=== PATIENT | female | born 1970 | race Caucasian/White ===

== ENCOUNTER → 2021-08-14 11:47 | Outpatient (CLI) | payer OTHER, SELFPAY ==
--- NOTE | ~2021-08-14 | US_ITS ---
EXAMINATION: US transvaginal EXAM DATE: 08/14/2021 12:43 INDICATION: Excessive and frequent menstruation. TECHNIQUE: Pelvic transvaginal sonogram was performed. There are multiple grayscale and Doppler imag es available for interpretation. Comparison is made to prior examination from 04/30/2017. FINDINGS: Uterus measures 8.7 x 3.6 x 4.5 cm, with possible anterior myometrial fibroid at 2.5 cm. E ndometrial stripe measures 8 mm, within normal limits. There is no free pelvic fluid. Right adnexa: The ovary measures 2.2 x 1.3 x 2.8 cm and is morphologically normal. Ovarian vascular f low confirmed. Left adnexa: The ovary measures 2.0 x 1.3 x 1.7 cm and is morphologically normal. Ovarian vascular fl ow confirmed. IMPRESSION: Possible anterior myometrial fibroid. Reviewed, dictated and finalized at location B.
--- NOTE | ~2021-08-14 | MM_ITS ---
EXAMINATION: MM screening mady BI w bethany HISTORY: Screening TECHNIQUE: Craniocaudal and mediolateral oblique 3-D tomosynthesis images were obtained and synthetic 2-D images were generated. CAD analysis was submitted and interpreted. COMPARISON: Comparison to multiple prior studies sequentially, with oldest reviewed study dated 11/22. BREAST PARENCHYMAL COMPOSITION: There are scattered areas of fibroglandular density. FINDINGS: There is no evidence of suspicious mass, calcification, or architectural distortion to sugg est malignancy in either breast. There has been no suspicious interval change. IMPRESSION: 1. No mammographic evidence of malignancy. 2. Recommend routine screening mammography in one year. BI-RADS Category 1: Negative Reviewed, dictated and finalized at location A.
== END ==
PROVIDERS: Visit Provider Nurse Practitioner
DX: Z12.31 Encounter for screening mammogram for malignant neoplasm of breast (principal); N92.0 Excessive and frequent menstruation with regular cycle
CPT/HCPCS: 76830; 77063; 77067

== ENCOUNTER 2021-11-09 02:25 | Day surgery (SDC) | payer OTHER, SELFPAY ==
--- NOTE | 2021-10-22 10:06 | SUR.PREOP ---
Addendum entered by Grecia Hutchison RN 11/05/21 12:27: PT TO ARRIVE AT 1230 ON 11/09/21 FOR SURGERY AT 1430. NO CLEAR LIQUIDS AFTER 1130. Original Note: Report to the Outpatient Waiting Room, entrance under the green pavilion located off [facility], at time 1145 on date 10/26/21. OR Time: 1345. - You and your visitor will be asked a series of questions to screen for COVID 19 for your protection. - Only one visitor is allowed at this time. - The patient visitor is requested to leave or wait in car when not with patient. - A mask is required within the hospital. Patients may have clear liquids (water, carbonated beverages, clear teas, apple juice) until 3 hours prior to surgery with a maximum of 20 ounces. - NO CLEAR LIQUIDS AFTER 1045 - No food from midnight until time of surgery - Infants may have breast milk until 4 hours before surgery, infant formula 6 hours prior to surgery. - Children will be allowed to drink immediately following surgery. If applicable, please bring a bottle or sippy cup to assist with drinking. Juice, water, soda, and popsicles are readily available. For infants on formula, please bring formula the day of surgery. Pacifiers are allowed. Please no make-up, nail libyan, hairspray, perfume, deodorant, or body powder the day of surgery. No jewelry (including any body piercings) or valuables the day of surgery, leave them at home. Please take a shower or bath the night before, or the morning of, surgery with an antibacterial soap. Wear comfortable, loose fitting clothing. Children are encouraged to wear pajamas. - Jewelry must be removed prior to entering the operating room. Rings and piercings that are not removed may be cut off. - The hospital will not accept responsibility for valuables. - Please leave all valuables, including medications, at home the day of surgery. If you are going home after surgery, a licensed after school driver must drive you home. - NO public transportation without another adult. - We recommend that an adult stay with you for 24 hours following discharge. - We also recommend that you do not drive, make important decision, drink alcoholic beverages, or take any drugs that were not prescribed by your health care provider for at least 24 hours after your discharge time. For Pediatric surgeries, we recommend two adults accompany the child home (only one inside the building at this time). Follow any additional instructions given to you from your surgeon. If you or anyone in your household have experienced Covid symptoms in the past week, please notify your surgeon or the nurse liaison at the phone number below for possible testing. Telephone instructions given to DELILAH RITTER and asked if any additional questions and then verbalized understanding. Patient advised to call surgeon office or pre surgery nurse liaison [phone] if any additional questions.
[2021-10-22 10:13] VITALS: BMI 28.3
--- NOTE | 2021-10-26 07:51 | WPDHPUPDATE1 ---
History and Physical Update Update Date/Time: 10/26/21 07:51 History and Physical has been reviewed, including an updated exam of the patient. There are NO changes in the patient's condition. Risks, benefits, and alternatives have been discussed and questions answered. Patient agrees to proceed with procedure.
--- NOTE | 2021-10-26 07:52 | PM.HPGS ---
History of Present Illness History of Present Illness Consent: Risks, benefits, and alternatives have been discussed and questions answered. Patient agrees to proceed with procedure. Chief complaint: Menorrhagia Narrative: Sarai Alejo is a 51 year old female with long and heavy cycles. Patient was previously scheduled for 10/26 and had to cancel due to starting her cycle in bleeding heavy the day of surgery. It was recommended to proceed with D&C hysteroscopy due to possible fibroid on ultrasound. Risks of infection, bleeding, perforation, and fluid imbalance were reviewed. Possible pathology was discussed. Patient voices understanding and agrees to proceed. Review of Systems Constitutional: Constitutional: Reports night sweats (And hot flashes) PMFSH Past Medical History Medical History (Updated 11/09/21 @ 09:52 by Jeanna Dyer MD) Anxiety BMI 28.0-28.9,adult (normal spontaneous vaginal delivery) x2 Vacuum-assisted vaginal delivery x1 Surgical History Surgical History (Updated 11/09/21 @ 09:52 by Jeanna Dyer MD) History of bilateral breast reduction surgery History of hysteroscopy 2016 Family History Family History Father Hypertension Parkinson's disease Mother Family history of malignant neoplasm Grandparent Family history of coronary artery disease Sibling No problems noted. Social History Social History Smoking packs per day: 1 Smoking cigarettes per day: 20.0 Years smoked: 18 Smoking pack-years: 18.00 Smoking status: Former smoker Tobacco type: cigarettes Second hand tobacco smoke exposure: No Smoking end date: 05/02/05 Alcohol intake: current Drinks per week: 4 Substance use: never Substance use type: does not use Living arrangements: with family Additional occupation/education comments: teacher-[employer] Gender identity (if verbalized by the patient): Female Spiritual care concerns: No Meds Home Medications and Allergies Home Medications Medication Instructions Recorded Confirmed Type hydrocortisone-acetic acid 1 %-2 % 3 drp otic (ear) TID #10 mL 10/08/21 11/05/21 Rx ear drops citalopram 40 mg tablet 40 mg PO HS 10/22/21 11/05/21 History ergocalciferol (vitamin D2) 1,250 1 cap PO 2XW 10/22/21 11/05/21 History mcg (50,000 unit) capsule scopolamine base 1 mg over 3 days 1 patch transdermal Q72H PRN 11/05/21 11/05/21 Rx transdermal patch motion sickness #4 ea Allergies Allergy/AdvReac Type Severity Reaction Status Date / Time No Known Allergies Allergy Unknown Verified 11/05/21 12:27 Exam Const: General: healthy appearing and alert Orientation/consciousness: patient oriented x3 Resp: Effort & Inspection: normal respiratory effort Auscultation: clear to auscultation bilaterally Cardio: Rate: regular rate Rhythm: regular rhythm GI: GI Palp: Yes Soft to palpation, No Tenderness to palpation present (GI) and No Palpable mass present : External Female Exam: normal external appearance Speculum Exam - Vagina: normal appearance of the vagina and normal vaginal discharge Speculum Exam - Cervix: normal appearance of the cervix Bimanual exam- vagina & uterus: uterine size normal and consistency normal Bimanual Exam- Adnexa, other: normal adnexae and No adnexal tenderness Neuro: General: patient oriented x3 Assessment and Plan Assessment and plan (1) Menorrhagia: Code(s): N92.0 - Excessive and frequent menstruation with regular cycle Status: Acute Assessment and Plan: Plan to proceed with D&C hysteroscopy
--- NOTE | 2021-11-05 12:27 | PC.NURSE ---
Pt states no changes in medications or health history since initial interview. Pre-op instructions reviewed with pt. Pt denies further questions at this time.
--- NOTE | 2021-11-09 09:48 | WPDHPUPDATE1 ---
History and Physical Update Update Date/Time: 11/09/21 09:48 History and Physical has been reviewed, including an updated exam of the patient. There are NO changes in the patient's condition. Risks, benefits, and alternatives have been discussed and questions answered. Patient agrees to proceed with procedure.
--- NOTE | 2021-11-09 12:30 | P.PNAN_ITS ---
Anes - Initial Pre Proc Eval Procedure: Operation Date: 11/09/21 14:30 Proposed Procedures p Hysteroscopy with Dilation and Curettage - Jeanna Dyer MD Date/Time: 11/09/21 12:30 Surgeon: Jeanna Dyer MD Pre Op Diagnosis: Menorrhagia Patient Data Age: 51 Gender: F Height: 1.57 m Weight: 70.4 kg Allergies Allergy/AdvReac Type Severity Reaction Status Date / Time No Known Allergies Allergy Unknown Verified 11/05/21 12:27 Home Medications Medication Instructions Recorded Confirmed Type hydrocortisone-acetic acid 1 %-2 % 3 drp otic (ear) TID #10 mL 10/08/21 11/05/21 Rx ear drops citalopram 40 mg tablet 40 mg PO HS 10/22/21 11/05/21 History ergocalciferol (vitamin D2) 1,250 1 cap PO 2XW 10/22/21 11/05/21 History mcg (50,000 unit) capsule scopolamine base 1 mg over 3 days 1 patch transdermal Q72H PRN 11/05/21 11/05/21 Rx transdermal patch motion sickness #4 ea Patient hx anesthesia problems: none Family hx anesthesia problems: none Results Review: All pre-operative results and documents have been reviewed as part of the pre- operative evaluation. [facility] Past Medical History Medical History (Updated 11/09/21 @ 12:31 by Reyes Delgado MD) Anxiety BMI 28.0-28.9,adult Menorrhagia (normal spontaneous vaginal delivery) x2 Vacuum-assisted vaginal delivery x1 Surgical History Surgical History (Updated 11/09/21 @ 09:52 by Jeanna Dyer MD) History of bilateral breast reduction surgery History of hysteroscopy 2017 Family History Family History Father Hypertension Parkinson's disease Mother Family history of malignant neoplasm Grandparent Family history of coronary artery disease Sibling No problems noted. 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 Informed Consent: The patient's anesthetic plan and its attendant risks and benefits were discussed with the patient/family/POA. Questions were solicited and answers provided to the satisfaction of the patient/family/POA.
[2021-11-09 13:00] VITALS: BP 129/69; PULSE 68; RESP 16; TEMP 36.5; O2SAT 100
[2021-11-09] MEDS: LACTATED RINGERS 1,000 ML 30 ML IV CONT (13:00)
[2021-11-09] MEDS: ACETAMINOPHEN 500 MG TABLET 1000 MG PO (13:12)
[2021-11-09] MEDS: KETOROLAC 30 MG/ML VIAL (*BKC) IV PUSH (14:20)
--- NOTE | 2021-11-09 14:24 | P.OP_ITS ---
Procedure Note - Detailed Date of Procedure 11/09/21 Pre-op Diagnosis Menorrhagia Post-op Diagnosis Same Procedure Performed D&C hysteroscopy Surgeon Jeanna Dyer MD Anesthesia MAC and Local Findings Uterus sounds to 8cm and appears thickened anteriorly Description of Procedure The patient was taken to the operating room and placed under anesthesia in the dorsal lithotomy position. She was prepped and draped in the usual sterile fashion. [place] speculum was placed in the vagina and the cervix grasped on the anterior lip with a tenaculum. Cervix is injected in each quadrant with 1% lidocaine. The uterus is sounded to 8cm. The cervix is serially dilated with Hegar to an 8. Diagnostic hysteroscope was placed with the above-stated findings. The hysteroscope was removed and the medium sharp curette used to curette the endometrium until a good uterine cry was noted in all areas. Particular attention was paid to the anterior surface near the fundus. All instruments are removed. Sponge, needle, and instrument counts are correct per the OR staff. Patient is awakened from anesthesia and taken to recovery in stable condition. Estimated Blood Loss 5 Drains No Packing No Pathology Yes (Endometrial curettings) Complications No immediate complications Condition Stable Disposition PACU
[2021-11-09 14:28] VITALS: BP 98/58; PULSE 60; RESP 16; O2SAT 96
[2021-11-09 14:55] VITALS: BP 120/73; PULSE 61
[2021-11-09 15:25] VITALS: BP 110/59; PULSE 60
== END 2021-11-09 15:42 | disposition home or self-care (01) ==
PROVIDERS: PCP Family Medicine; Visit Provider Obstetrics & Gynecology Gynecology
PROC: 0U5B8ZZ Destruction of Endometrium, Via Natural or Artificial Opening Endoscopic (ICD-10-PCS; CPT 58563; principal; 2021-11-09 14:30)
DX: N92.0 Excessive and frequent menstruation with regular cycle (principal); F41.9 Anxiety disorder, unspecified; Z87.891 Personal history of nicotine dependence
CPT/HCPCS: 58558; 88305; A9270; J1100; J1885; J2250; J2405; J2704; J3010; J7120

== ENCOUNTER 2024-01-20 08:25 | Emergency (ER) | payer OTHER, SELFPAY ==
[2024-01-20] VITALS (25 sets, daily range): BP systolic 107–125; BP diastolic 63–82; PULSE 58–77; RESP 12–20; TEMP 36.6; O2SAT 97–100
[2024-01-20 09:17] LABS: Basophils Percent Auto 0.7 % (0.2-1.2); Eosinophils Percent Auto 0.5 % (0-4.4); Hematocrit 43.6 % (37.0-47.0); Hemoglobin 14.5 g/dL (12.0-15.0); Immature Granulocyte Absolute 0.01 K/mm3 (0.00-0.031); Immature Granulocyte Percent A 0.2 % (0-0.5); Lymphocytes Absolute Auto 1.81 K/mm3 (0.9-3.2); Lymphocytes Percent Auto 29.5 % (18.3-44.2); Mean Corpuscular HGB Conc 33.3 g/dl (32-36); Mean Corpuscular Hemoglobin 31.1 pg (26-34); Mean Corpuscular Volume 93.6 fl (80-100); Mean Platelet Volume 8.7 fl (7.4-10.4); Monocytes Absolute Auto 0.6 K/mm3 (0.1-0.6); Monocytes Percent Auto 10.3 % (2.6-8.5); Neutrophils Absolute Auto 3.6 K/mm3 (1.3-6.7); Neutrophils Percent Auto 58.8 % (45.5-73.1); Platelet Count Result 265 k/mm3 (150-375); Red Blood Count 4.66 M/mm3 (4.2-5.4); Red Cell Distribution Width 13.3 % (11.5-14.5); White Blood Count 6.1 K/mm3 (4.5-10.0)
[2024-01-20] MEDS: diphenhydrAMINE HCl INJ 50 MG/ML VIAL IV PUSH (09:18)
[2024-01-20] MEDS: methylPREDNISolone SOD SUCC 125 MG VIAL IV PUSH (09:21)
[2024-01-20] MEDS: FAMOTIDINE 20 MG/2 ML VIAL IV PUSH (09:25)
[2024-01-20] MEDS: LACTATED RINGERS 1,000 ML 999 ML IV CONT (09:25)
[2024-01-20 09:36] LABS: Anion Gap 6 mmol/L (4-12); Blood Urea Nitrogen 9 mg/dL (7-17); Carbon Dioxide 30 mmol/L (22-30); Chloride 102 mmol/L (98-107); Estimated CRCL calculation 85 ml/min; Estimated Glomerular Filt Rate > 60; Glucose 103 mg/dL (65-110); Potassium 3.8 mmol/L (3.4-5.0); Sodium 138 mmol/L (137-145)
--- NOTE | 2024-01-20 09:57 | ED.ALLEREA ---
HPI - Allergic Reaction General Chief complaint: Allergic Reaction Stated complaint: lip swelling Time Seen by Provider: 01/20/24 08:50 History of Present Illness HPI narrative: 53-year-old otherwise healthy female presented to the emergency depart with lower lip and lower bilateral facial swelling. She states she woke up at midnight yesterday noticed a tingling sensation around her lips both upper lower and knows that which looked in the mirror she had significant swelling her anterior left upper lip and lower lip. She started noticing that she had some swelling in her lower jaw as well but no difficulty swallowing, no dysphonia, difficulty breathing. No headache or vision changes. Thinks she might have been bit by something overnight. She took a children's Benadryl overnight and went back to bed. She woke up in the morning noticing that the swelling had significantly calmed down, but still present prompting her to seek medical evaluation. She went to urgent care today and was referred to the ED for concerns of potential angioedema. Patient has no history of angioedema, does not take any his inhibitors or arbs, no history of hereditary angioedema or similar findings in her past or her family members. Only takes citalopram for depression. Was otherwise in her normal state of health. Related Data Allergies Allergy/AdvReac Type Severity Reaction Status Date / Time No Known Allergies Allergy Unknown Verified 01/20/24 09:03 Review of Systems Review of Systems: As reviewed above in HPI [facility] Past Medical History Medical History Anxiety BMI 27.0-27.9,adult BMI 28.0-28.9,adult Menorrhagia (normal spontaneous vaginal delivery) x2 Vacuum-assisted vaginal delivery x1 Surgical History Surgical History History of bilateral breast reduction surgery History of hysteroscopy 2016 Family History Family History Father Hypertension Parkinson's disease Mother Family history of malignant neoplasm Leukemia Grandparent Family history of coronary artery disease Sibling No problems noted. Social History Social History Smoking packs per day: 1 Smoking cigarettes per day: 20.0 Years smoked: 18 Smoking pack-years: 18.00 Smoking status: Former smoker Tobacco type: cigarettes Second hand tobacco smoke exposure: No Smoking end date: 05/02/05 Alcohol intake: current Drinks per week: 4 Substance use: never Substance use type: does not use Do You Feel Safe in your Home?: Yes Lack of Transportation: No Lack of Food: Never True Current Housing: I Have Housing Concerned About Future Housing: No Difficulty Paying Gas/Electric Bills: No Difficulty Paying for Meds: No Currently Unemployed: No Education: Master's Degree or Higher Difficulty w/ Childcare or Family Care: No Living arrangements: with family Occupation/Education: occupation Additional occupation/education comments: teacher-[employer] Gender identity (if verbalized by the patient): Female Spiritual care concerns: No Exam Narrative: GENERAL: [Well-appearing, well-nourished, and in no acute distress.] HEAD: [Normocephalic, atraumatic.] EYES: [PERRLA and EOMI.] ENT: Focal anterior lip swelling with what appears to be some wheels on the inner aspect of her lip. Some very minor lip swelling on the top left lip. Bilateral lower chin swelling without any tenderness. No lymphadenopathy, posterior oropharynx without any erythema, exudates, uvula is midline, base tongue without any swelling, no dysphonia NECK: Supple. CHEST: [Clear to auscultation. No respiratory distress.] HEART: [Regular rate and rhythm]. No murmur heard. [Normal peripheral pulses.]
--- NOTE | 2024-01-20 11:10 | PC.NURSE ---
Patient's lip and face less swollen. patient states she feels like it is much better as well. patient continues to deny any SOB. provider aware
--- NOTE | 2024-01-20 11:31 | PC.NURSE ---
Patient ambulated to the restroom with steady gate
== END 2024-01-20 13:16 | disposition home or self-care (01) ==
PROVIDERS: Emergency Provider Student in an Organized Health Care Education/Training Program; PCP Family Medicine
DX: T78.40XA Allergy, unspecified, initial encounter (principal); R22.0 Localized swelling, mass and lump, head; R20.2 Paresthesia of skin; Z87.891 Personal history of nicotine dependence; F32.A Depression, unspecified
CPT/HCPCS: 36415; 80048; 85025; 96361; 96374; 96375; 99285; J1200; J2919; J7120